=== PATIENT | female | born 1995 | race American Indian/Alaskan Native ===

== ENCOUNTER 2018-01-22 14:15 | Emergency (ER) | payer OTHER ==
[2018-01-22 14:22] VITALS: BP 118/70
[2018-01-22] MEDS ORDERED: BOOSTRIX IM ONE (17:14)
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
[2018-01-22] MEDS ORDERED: MOTRIN PO ONE (18:04)
== END 2018-01-22 18:10 | disposition home or self-care (01) ==
LOC: ED 14:15
DX: S61.412A Laceration without foreign body of left hand, initial encounter (principal); W26.0XXA Contact with knife, initial encounter; Y93.89 Activity, other specified; Y99.8 Other external cause status; Y92.89 Other specified places as the place of occurrence of the external cause
CPT/HCPCS: 90471; 90715

== ENCOUNTER 2020-11-20 16:53 | Emergency (ER) | payer SELFPAY ==
[2020-11-20 17:02] VITALS: BP 105/66
--- NOTE | 2020-11-20 17:32 | Emergency Department Report ---
Chief Complaint: Urogenital-Female Stated Complaint: Exposure to STD - HPI History of Present Illness: 25-year-old -[place] female presents to the emergency room requesting an STD evaluation. Patient states that her boyfriend told her that he was treated for syphilis. Patient denies any vaginal discharge denies any painful or painless lesion she denies any vaginal pain denies any headache no dizziness. Her last menstrual period was 09/23/2020. - Exam Vital Signs: Vital Signs 11/20/20 17:01 Temperature 98.9 F Pulse Rate 94 H Respiratory 16 Rate Blood Pressure 105/66 O2 Sat by Pulse 100 Oximetry Physical Exam: Alert and oriented x3 no acute distress nontoxic in appearance Nonlabored breathing no accessory muscles use Ambulatory without difficulties answer all questions appropriately MSE screening note: Focused history and physical exam performed. Due to findings the following was ordered: 25-year-old -[place] female presents to the emergency room requesting an STD evaluation. Patient states that her boyfriend told her that he was treated for syphilis. Patient denies any vaginal discharge denies any painful or painless lesion she denies any vaginal pain denies any headache no dizziness. Her last menstrual period was 09/23/2020. ED Disposition for MSE Disposition: Z-07 MED SCREENING EXAM-LEFT Is pt being admited?: No Does the pt Need Aspirin: No Condition: Stable Additional Instructions: Recommend to follow up at the health department for a full STD evaluation. Referrals: [facility] [Outside] - 3-5 Days [facility] [Outside] - 3-5 Days [facility] [Provider Group] - 3-5 Days
== END 2020-11-20 17:34 | disposition left against medical advice (07) ==
LOC: ED 16:53
DX: Z20.2 Contact with and (suspected) exposure to infections with a predominantly sexual mode of transmission (principal); Z53.21 Procedure and treatment not carried out due to patient leaving prior to being seen by health care provider